=== PATIENT | female | born 1980 | race Caucasian/White ===

== ENCOUNTER 2019-06-07 18:23 | Emergency (ER) | payer OTHER ==
[~2019-06-07] VITALS: Ht 157.5 cm; Wt 84.1 kg
[2019-06-07] MEDS ORDERED: LIDOCAINE 5% TRANSDERMAL PATCH TD ONE (20:30)
[2019-06-07] MEDS ORDERED: ACETAMINOPHEN 500 MG TABLET PO ONE (20:30)
[2019-06-07] MEDS ORDERED: CYCLOBENZAPRINE HCL 10 MG TABLET PO ONE (20:45)
[2019-06-07] MEDS ORDERED: KETOROLAC TROMETHAMINE 60 MG/2 ML VIAL IM ONE (21:15)
[2019-06-07 22:45] VITALS: BP 119/69
== END 2019-06-07 22:53 | disposition home or self-care (01) ==
LOC: EMS 18:26
DX: S33.5XXA Sprain of ligaments of lumbar spine, initial encounter (principal); S13.4XXA Sprain of ligaments of cervical spine, initial encounter; V49.9XXA Car occupant (driver) (passenger) injured in unspecified traffic accident, initial encounter; Y93.89 Activity, other specified; Y92.89 Other specified places as the place of occurrence of the external cause; Y99.8 Other external cause status
CPT/HCPCS: 72040; 72070; 72100; 81025; 96372; 99284; J1885